=== PATIENT | male | born 1955 | race American Indian/Alaskan Native ===

== ENCOUNTER 2021-06-17 07:14 | Day surgery (SDC) | payer BC ==
[2021-06-12 10:56] LABS: Alanine Aminotransferase 22 units/L (7-56); Albumin 4.2 g/dL (3.9-5); BUN/Creatinine Ratio 19; Blood Urea Nitrogen 17 mg/dL (9-20); Calcium 9.1 mg/dL (8.4-10.2); Hemolysis Index 7
[2021-06-12 11:12] LABS: Hematocrit 43.3 % (35.5-45.6); Mean Corpuscular HGB Conc 32 % (32-34); Mean Corpuscular Volume 87 fl (84-94); Platelet Count 146 K/mm3 (140-440); Red Blood Count 4.96 M/mm3 (3.65-5.03)
[~2021-06-17 07:14] MED LIST: LACTATED RINGERS 1,000 ML IV SCH; MIDAZOLAM 2 MG/2 ML INJ IV NR
[2021-06-17] MEDS ORDERED: SODIUM CHLORIDE 0.9% 500 ML 500 ML ONE (07:36)
[2021-06-17] MEDS ORDERED: HYDROcodone/ACETAMINOPHEN 5-325 MG TAB PO PRN (07:48)
[2021-06-17] MEDS ORDERED: ONDANSETRON 4 MG/2 ML INJ IV PRN (07:48)
[2021-06-17] MEDS ORDERED: HYDROmorphone 1 MG/1 ML INJ IV PRN (07:48)
--- NOTE | 2021-06-17 07:49 | Anesthesia Consultation ---
Anesthesia Consult and Med Hx Date of service: 06/17/21 - Airway Anesthetic Teeth Evaluation: Good ROM Head & Neck: Adequate Mental/Hyoid Distance: Adequate Mallampati Class: Class III Intubation Access Assessment: Possibly Difficult - Pre-Operative Health Status ASA Pre-Surgery Classification: ASA2 Proposed Anesthetic Plan: General - Pulmonary Hx Smoking: No Hx Respiratory Symptoms: No Hx Sleep Apnea: No (SHAN PRE SCREEN HIGH RISK) - Cardiovascular System Hx Hypertension: Yes (took antihypertensives last night) Hx Heart Attack/AMI: No Hx Percutaneous Transluminal Coronary Angioplasty (PTCA): No - Central Nervous System CVA: No - Endocrine Hx Renal Disease: No Hx Liver Disease: No Hx Non-Insulin Dependent Diabetes: Yes Hx Thyroid Disease: No - Other Systems Hx Obesity: No - Additional Comments Anesthesia Medical History Comments: No hx anesthetic complications.
--- NOTE | 2021-06-17 07:50 | Anesthesia Day of Surgery ---
Anesthesia Day of Surgery - Day of Surgery Patient Examined: Yes Patient H&P Reviewed: Yes Patient is NPO: Yes
[2021-06-17] MEDS ORDERED: ceFAZolin/STERILE WATER 2 GM/20 ML SYRINGE IV NR (09:00)
[2021-06-17] MEDS ORDERED: HYDROmorphone 1 MG/1 ML INJ ONE (09:04)
[2021-06-17] MEDS ORDERED: LIDOCAINE MPF (2%) 20 MG/1 ML VIAL 5 ML ONE (09:04)
[2021-06-17] MEDS ORDERED: propofoL 200 MG/20 ML VIAL IV ONE (09:04)
[2021-06-17] MEDS ORDERED: KETOROLAC 30 MG/1 ML INJ ONE (09:39)
[2021-06-17] MEDS ORDERED: ONDANSETRON 4 MG/2 ML INJ ONE (09:39)
[2021-06-17] MEDS ORDERED: WATER FOR IRRIG STERILE 1,500 ML BOTTLE IR ONE (09:58)
[2021-06-17] MEDS ORDERED: SODIUM CHLORIDE 0.9% 1000 ML IV SOLN IR ONE (09:59)
[2021-06-17] MEDS ORDERED: SODIUM CHLORIDE 0.9% 500 ML IVPB IRRIGATION ONE (09:59)
--- NOTE | 2021-06-17 09:59 | Operative Report ---
DATE OF SURGERY: 06/17/2021 PREOPERATIVE DIAGNOSIS: Benign prostatic hypertrophy with refractory lower urinary tract symptoms despite maximal medical therapy. POSTOPERATIVE DIAGNOSES: Benign prostatic hypertrophy with refractory lower urinary tract symptoms despite maximal medical therapy. PROCEDURE: Rezum procedure. ATTENDING SURGEON: Dalton Mckeon MD DICTAPHONE MECHANIC: None. ANESTHESIA: General. ESTIMATED BLOOD LOSS: 10 mL. DRAINS: A 20-[place] coude catheter. SPECIMENS: None. COMPLICATIONS: None. INDICATIONS FOR PROCEDURE: The patient is a 66-year-old man with BPH and refractory LUTS. He had an episode of epididymitis and a scrotal abscess due to his voiding dysfunction. He was brought to the operating room today for outlet reduction after discussion of risks, benefits and alternatives. DESCRIPTION OF PROCEDURE IN DETAIL: After induction of suitable anesthesia and proper positioning and preparation in the dorsal lithotomy position, the Rezum device was inserted into the bladder under direct visualization. The patient had mostly lateral lobe hypertrophy. Three treatments to the left lateral lobe in a Z pattern were performed in the usual manner. Three treatments to the right lateral lobe were then completed in a typical Z pattern as well. There appeared to be a good coverage of lateral lobes bilaterally. The device was then removed and a Marlow catheter was placed. The patient was then awakened from anesthesia and transferred to the recovery room in stable condition. He tolerated the procedure well. He will return in approximately 5 days for catheter removal. TID: [id number] RECEIPT: [id number] MELCHOR/RUDI
--- NOTE | 2021-06-17 11:48 | Post Anesthesia Evaluation ---
- Post Anesthesia Evaluation Patient Participated: Yes Airway Patent: Yes Stable Respiratory Function: Yes Nausea/Vomiting: No Temp > 96.8F: Yes Pain Manageable: Yes Adequeate Hydration: Yes Anesthesia Complications: No
[2021-06-17 15:03] VITALS: BP 123/77
== END 2021-06-17 11:15 | disposition home or self-care (01) ==
LOC: OR 07:14
PROVIDERS: ATTEND Urology
DX: N40.1 Benign prostatic hyperplasia with lower urinary tract symptoms (principal); Z20.822 Contact with and (suspected) exposure to COVID-19; I10 Essential (primary) hypertension; E11.9 Type 2 diabetes mellitus without complications; Z79.899 Other long term (current) drug therapy; Z98.890 Other specified postprocedural states
CPT/HCPCS: 36415; 53854; 80053; 82962; 85027; J0690; J1170; J1885; J2405; J2704; J3490; J7030; J7040; J7120; U0003; Q0162